=== PATIENT | female | born 2000 | race Caucasian/White ===

== ENCOUNTER 2019-03-13 23:36 | Emergency (ER) | payer SELFPAY ==
--- NOTE | 2019-03-13 23:58 | ED ---
Head Injury - HPI Summary HPI Summary: Patient is a 19 y/o F presenting to the ED via EMS for a chief complaint of laceration above the left eyebrow. Patient is present with her boyfriend. Per her boyfriend, patient was being accompanied home by her boyfriend when she took off running across the street on the walk home. Patient slipped and fell on the sidewalk, injuring her left forehead. Currently, patient has a laceration on the left forehead with dried blood on her face and clothing. She admits to drinking alcohol and states she is "intoxicated" which is why she lost her balance and fell. Patient denies a loss of consciousness or myalgia. Any aggravating or alleviating factors are denied. Any significant PMHx, PSHx, or FMHx is denied. LNMP was 9-10 days ago. Last tetanus was in 2014. - History Of Current Complaint Chief Complaint: EDHeadInjury Stated Complaint: HEAD LAC PER EMS Time Seen by Provider: 03/13/19 23:41 Hx Obtained From: Patient, Family/Advanced Practice Nurse Psychotherapist - Boyfriend Mechanism Of Injury: Fall From A Standing Position Onset/Duration: Traumatic - Fall, Still Present Onset of Pain: Immediate Severity Currently: None Severity Initially: Mild Pain Intensity: 0 Pain Scale Used: 0-10 Numeric Location of Head Injury: Frontal - Left forehead Character: Unable to describe Aggravating Factor(s): Other: - Nothing Alleviating Factor(s): Other: - Nothing Associated Signs And Symptoms: Other: - Positive laceration on the left forehead - Allergies/Home Medications Allergies/Adverse Reactions: Allergies Allergy/AdvReac Type Severity Reaction Status Date / Time No Known Allergies Allergy Verified 03/13/19 23:55 Home Medications: Home Medications NK [No Home Medications Reported] 03/13/19 [History Confirmed 03/13/19] PMH/Surg Hx/FS Hx/Imm Hx Previously Healthy: Yes Endocrine/Hematology History: Denies: Hx Diabetes Cardiovascular History: Denies: Hx Hypercholesterolemia, Hx Hypertension Sensory History: Denies: Hx Legally Blind, Hx Deafness Opthamlomology History: Denies: Hx Legally Blind EENT History: Denies: Hx Deafness - Surgical History Surgical History: None Surgery Procedure, Year, and Place: None - Immunization History Date of Tetanus Vaccine: 2014 Infectious Disease History: No Infectious Disease History: Denies: Traveled Outside the [place] in Last 30 Days - Family History Known Family History: Negative: Cardiac Disease, Hypertension, Diabetes - Social History Occupation: Student Lives: Alone Alcohol Use: Occasionally Alcohol Amount: Alcohol on 03/13/19 Hx Substance Use: No Substance Use Type: Reports: None Hx Tobacco Use: No Smoking Status (MU): Never Smoked Tobacco Review of Systems - ROS Summary Review of Systems Summary: NK [No Home Medications Reported] 03/13/19 [History Confirmed 03/13/19] Negative: Myalgia Positive: Other - Positive laceration on the left forehead with dried blood Negative: Syncope - Negative loss of consciousness All Other Systems Reviewed And Are Negative: Yes Physical Exam - Summary Physical Exam Summary: General: Well-developed, Well-nourished FEMALE. No acute distress. HEENT: Normocephalic, Atraumatic.2.1 cm laceration above the left eyebrow, 3 cm width, 2 cm length. Eyes: Conjuctiva normal, PERRL. Oropharynx: Clear, mucous membranes moist, (-) exudates. Neck: Soft, FROM, (-) lymphadenopathy, (-) thyromegaly, (-) JVD. Cardiovascular: Normal sinus rhythm, (-) murmur. Lungs: Clear to auscultation bilaterally (-) wheezes, (-) rales, (-) rhonchi. Abdomen: Soft, non-tender, non-distended, (-) organomegaly, normal bowel sounds. Back: (-) CVA tenderness Extremities: No edema. Skin: Warm, dry, (-) rash. Neuro: GCS: 14. Obviously intoxicated, slurring her words, smells of alcohol. Psychiatric: Mood normal, affect normal. Triage Information Reviewed: Yes Vital Signs On Initial Exam: Initial Vitals Temp Pulse Resp BP Pulse Ox 98.3 F 80 17 125/95 98 03/13/19 23:49 03/13/19 23:49 03/13/19 23:49 03/13/19 23:49 03/13/19 23:49 Vital Signs Reviewed: Yes - Ken Coma Scale Best Eye Response: 4 - Spontaneous Best Motor Response: 6 - Obeys Commands Best Verbal Response: 4 - Confused Coma Scale Total: 14 Procedures - Sedation Patient Received Moderate/Deep Sedation with Procedure: No - Laceration/Wound Repair 1 Location: face - Above left eyebrow Description: Linear Anesthesia: Lido Length, Depth and Shape: 3 cm width, 2 cm depth, 2.1 cm length Betadine Prep?: No Irrigated w/ Saline (ccs): 100 Laceration/Wound Explored: clean Closure: Single Layer Debridement: None Suture Type: Other - 5-0 ethylon Number of Sutures: 5 Sterile Dressing Applied?: Yes - With ointment Diagnostics - Vital Signs Vital Signs Temp Pulse Resp BP Pulse Ox 03/13/19 23:49 98.3 F 80 17 125/95 98 - Laboratory Result Diagrams: 03/14/19 00:25 03/14/19 00:25 Lab Statement: Any lab studies that have been ordered have been reviewed, and results considered in the medical decision making process. - CT Brain CT CT Interpretation Completed By: Radiologist Summary of CT Findings: Brain CT IMPRESSION: No acute intracranial abnormality. Reviewed by Dr. Hogue. Re-Evaluation - Re-Evaluation First Eval Re-Evaluation Time: 02:12 Change: Improved Comment: At 02:12, I have discussed results with the patient and symptoms are resolved. Discussed symptoms that warrant immediate return to ED. Head Injury Course/Dx Course Of Treatment: 19-year-old female presents with left forehead injury after fall. Acute alcohol intoxication. Witnessed fall. No loss of consciousness. CT head negative. Patient's forehead repaired with 5 stitches. Patient's boyfriend will take patient home in stable with her through the night until she is sober. Follow-up with PCP. Follow-up sooner for any worsening symptoms. - Diagnoses Provider Diagnoses: Acute alcohol intoxication, Head trauma Discharge ED - Sign-Out/Discharge Documenting (check all that apply): Patient Departure - Discharge - Discharge Plan Condition: Stable Disposition: HOME Patient Education Materials: Alcohol Intoxication (ED) Referrals: [facility] [Outside] Additional Instructions: Please follow up with your primary care physician within three days. Please return to ED for any new or worsening symptoms. - Billing Disposition and Condition Condition: STABLE Disposition: Home - Attestation Statements Document Initiated by Scribe: Yes Documenting Scribe: Kaye English Provider For Whom Scribe is Documenting (Include Credential): Hanna Hogue MD Scribe Attestation: Kaye Aaron scribed for Hanna Hogue MD on 03/14/19 at 0638. Scribe Documentation Reviewed: Yes Provider Attestation: The documentation as recorded by the scribe, Kaye English accurately reflects the service I personally performed and the decisions made by me, Hanna Hogue MD Status of Scribe Document: Viewed
[2019-03-14 00:33] LABS: ABS Eosinophils 0.1 10^3/ul (0-0.6); ABS Lymphocytes 1.4 10^3/ul (1.0-4.8); ABS Monocytes 0.5 10^3/ul (0-0.8); ABS Neutrophils 3.2 10^3/ul (1.5-7.7); Hematocrit 37 % (35-47); Hemoglobin 12.2 g/dL (12.0-16.0); Lymphocyte % 27.2 %; Mean Corpuscular HGB Conc 33 g/dL (31-36); Mean Corpuscular Hemoglobin 25 pg (27-31); Mean Corpuscular Volume 76 fL (80-97); Mean Platelet Volume 8.8 fL (7.4-10.4); Platelet Count 281 10^3/uL (150-450); Red Cell Distribution Width 18 % (10-15); White Blood Count 5.3 10^3/uL (3.5-10.8)
[2019-03-14 00:49] LABS: ALT 17 U/L (7-52); AST 20 U/L (13-39); Albumin 4.7 g/dL (3.2-5.2); Albumin/Globulin Ratio 1.6 (1-3); Alkaline Phosphatase 47 U/L (34-104); BUN/Creatinine Ratio 10.5 (8-20); Blood Urea Nitrogen 9 mg/dL (6-24); CO2 Carbon Dioxide 23 mmol/L (22-32); Calcium 9.3 mg/dL (8.6-10.3); EGFR African American 101.8 (>60); EGFR Non-African American 84.1 (>60); Globulin 2.9 g/dL (2-4); Glucose 104 mg/dL (70-100); Potassium 3.6 mmol/L (3.5-5.0); Sodium 144 mmol/L (135-145); Total Protein 7.6 g/dL (6.4-8.9)
[2019-03-14 00:53] LABS: INR 1.05 (0.82-1.09)
[2019-03-14 00:54] LABS: Anion Gap 9 mmol/L (2-11); Chloride 112 mmol/L (101-111)
[2019-03-14 00:56] LABS: HCG Pregnancy < 0.60 mIU/mL
[2019-03-14 01:04] LABS: Alcohol 314 mg/dL (<10)
[2019-03-14 01:35] LABS: Urine Benzodiazepine Screen None Detected (None Detect); Urine Opiates Screen None Detected (None Detect)
[2019-03-14 02:02] LABS: Urine Bacteria Absent (Absent); Urine Red Blood Cell Trace(0-2/hpf) (Absent); Urine Squamous Epithelial Cell Present (Absent); Urine White Blood Cell Absent (Absent)
[2019-03-14] MEDS ORDERED: Bacitracin OINTMENT* 0.5% 0.5 oz TUBE TOPICAL ONE (02:10)
[2019-03-14 02:15] LABS: Urine Appearance Clear; Urine Bilirubin Negative (Negative); Urine Blood Negative (Negative); Urine Color Colorless; Urine Glucose Negative (Negative); Urine Ketones Negative (Negative); Urine Nitrite Negative (Negative); Urine Protein Negative (Negative); Urine Specific Gravity 1.003 (1.010-1.030); Urine Urobilinogen Negative (Negative)
[2019-03-14 02:45] VITALS: BP 109/77
== END 2019-03-14 02:40 | disposition home or self-care (01) ==
LOC: ED 23:36
DX: F10.129 Alcohol abuse with intoxication, unspecified (principal); S01.112A Laceration without foreign body of left eyelid and periocular area, initial encounter; W18.30XA Fall on same level, unspecified, initial encounter; Y93.02 Activity, running; Y92.480 Sidewalk as the place of occurrence of the external cause
CPT/HCPCS: 12013; 36415; 70450; 80053; 80307; 80320; 81003; 83605; 84702; 85025; 85610; 99284; G0480